=== PATIENT | male | born 1950 | race Caucasian/White ===

== ENCOUNTER → 2016-10-14 | Outpatient (CLI) | payer OTHER, MEDICARE ==
--- NOTE | 2016-10-14 12:42 | CT ---
CT of the right hip, right knee and right ankle without contrast with multiplanar reconstructions History: Right knee osteoarthritis and pain. M17.9. [facility] preoperative study. Comparison: MRI right knee. Technique: Noncontrast axial computed tomographic images of the hip, knee, and ankle with multiplanar reconstructions. CT Dose reduction techniques utilized. Findings: Severe medial tibiofemoral joint space narrowing with complete loss of joint space, subchon dral sclerosis of the medial femoral condyle and medial tibial plateau, and medial femoral condyle os teophytes. No definite joint effusion. No destructive osseous lesions. Tray Setter view and axial images demonstrate no significant degenerative changes of the right hip or right ankle. Peripheral vascular calcifications of the arteries. Impression: 1. Right knee severe medial tibiofemoral osteoarthritis. 2. Peripheral vascular disease.
== END ==
LOC: FIMAGING 10:23
PROVIDERS: ATTEND Orthopaedic Surgery
DX: Z01.818 Encounter for other preprocedural examination (principal); M17.11 Unilateral primary osteoarthritis, right knee; I73.9 Peripheral vascular disease, unspecified

== ENCOUNTER 2016-10-30 06:00 | Observation (INO) | payer OTHER, MEDICARE ==
[2016-10-30] MEDS ORDERED: TRANEXAMIC ACID 3,000 MG/50 ML BAG IRR ONE (06:27)
[2016-10-30] MEDS ORDERED: VANCOMYCIN 1 GM VIAL IV ONE (06:27)
[2016-10-30] MEDS ORDERED: SKIN ADHESIVE (DERMABOND) 1 EACH TP ONE (06:27)
[2016-10-30] MEDS ORDERED: MIDAZOLAM 2 MG/2 ML VIAL ONE (07:35)
[2016-10-30] MEDS ORDERED: PROPOFOL/EMULSION 500 MG/50 ML BOTTLE IV ONE (07:44)
[2016-10-30] MEDS ORDERED: CHLORHEXIDINE GLUC HIBICLENS 118 ML BTL TP ONE (08:00)
[2016-10-30] MEDS ORDERED: CEFAZOLIN 2 GM/DEXTR 100 ML IV ONE (08:00)
[2016-10-30] MEDS ORDERED: FAMOTIDINE 20 MG TAB PO ONE (08:00)
[2016-10-30] MEDS ORDERED: TRANEXAMIC ACID 3,000 MG in NS 50 ML IRR ONE (08:00)
[2016-10-30] MEDS ORDERED: DEXAMETHASONE 4 MG/ML VIAL IVP ONE (08:00)
[2016-10-30] MEDS ORDERED: ACETAMINOPHEN 325 MG TAB PO ONE (08:00)
[2016-10-30] MEDS ORDERED: ROPI/epiNEPH/KETOROLAC JOINT COCKTAIL IU ONE (08:00)
[2016-10-30] MEDS ORDERED: ROPIVACAINE HCL 150 MG/30 ML INJ ONE (08:25)
[2016-10-30] MEDS ORDERED: clonIDINE 1 MG/10 ML VIAL EP ONE (08:25)
[2016-10-30] MEDS ORDERED: METOCLOPRAMIDE 10 MG/2 ML VIAL IVP PRN (09:24)
[2016-10-30] MEDS ORDERED: DIPHENOXYLATE/ATROPINE LOMOTIL 1 TAB PO PRN (09:24)
[2016-10-30] MEDS ORDERED: ONDANSETRON 4 MG/2 ML VIAL IVP PRN (09:24)
[2016-10-30] MEDS ORDERED: POLYETHYLENE GLYCOL 3350 17 GM PKT PO PRN (09:24)
[2016-10-30] MEDS ORDERED: BISACODYL 10 MG SUPP PR PRN (09:24)
[2016-10-30] MEDS ORDERED: oxyCODONE IR 5 MG TAB PO PRN (09:24)
[2016-10-30] MEDS ORDERED: ONDANSETRON DISINTEGRATING 4 MG TAB PO PRN (09:24)
[2016-10-30] MEDS ORDERED: PROMETHAZINE HCL 25 MG SUPPR PR PRN (09:24)
[2016-10-30] MEDS ORDERED: MAGNESIUM HYDROXIDE 30 ML UDCUP PO PRN (09:24)
[2016-10-30] MEDS ORDERED: LACTULOSE 20 GM/30 ML UDCUP PO PRN (09:24)
[2016-10-30] MEDS ORDERED: PROMETHAZINE HCL 25 MG/ML INJ IVP PRN (09:24)
[2016-10-30] MEDS ORDERED: CYCLOBENZAPRINE 10 MG TAB PO PRN (09:24)
[2016-10-30] MEDS ORDERED: TEMAZEPAM 15 MG CAP PO PRN (09:24)
[2016-10-30] MEDS ORDERED: diphenhydrAMINE 25 MG CAP PO PRN (09:24)
[2016-10-30] MEDS ORDERED: PHARMACY PAIN CONSULT 1 EA MISC PRN (09:24)
--- NOTE | 2016-10-30 09:24 | POSTOPPROG ---
Post Op Note Date of Operation: 10/30/16 Surgeon: Kulwinder Ch Stage Manager: fidel ch Anesthesiologist: dr. sanchez Anesthesia: Spinal, Other (Specify) (adductor canal block) Pre-op Diagnosis: right knee OA Post-op Diagnosis: same Indication: right knee pain due to OA that failed conservative measures Procedure: R med partial knee arthroplasty robot assisted Findings: severe medial knee OA Inf/Abcess present in the surg proc area at time of surgery?: No EBL: 50-100
[2016-10-30] MEDS ORDERED: LR 1,000 ML IV SCH (09:30)
--- NOTE | 2016-10-30 10:28 | DX ---
Right Knee, Two Views History: Postop alignment check. Partial knee replacement Findings: A right medial compartment partial knee prosthesis is present and is in excellent postopera tive alignment. Gas is present in the soft tissues as expected. Impression: Excellent postoperative alignment partial medial compartment knee replacement.
[2016-10-30] MEDS: ACETAMINOPHEN 325 MG TAB PO SCH ×3 (12:27→23:27)
[2016-10-30] MEDS: ceFAZolin 2 GM in D5W 100 ML IV SCH ×2 (14:29→21:44)
[2016-10-30] MEDS ORDERED: ceFAZolin 2 GM/DEXTROSE 100 ML IV SCH (16:00)
--- NOTE | 2016-10-30 19:40 | GOP ---
[f rep st] OPERATIVE REPORT DATE OF OPERATION: 10/30/2016 SURGEON: Matthew Thakkar MD AUTOMOTIVE CONSULTANT: Mariangel Thakkar PA-C. ANESTHESIA: Spinal. PREOPERATIVE DIAGNOSIS: Right knee osteoarthritis. POSTOPERATIVE DIAGNOSIS: Right knee osteoarthritis. PROCEDURE PERFORMED: Right medial compartment partial knee replacement with computer navigation and robotic assist. FINDINGS/PATHOLOGY: Severe medial compartment osteoarthritis. INDICATIONS: This is a 66 year old male with progressive pain of the right knee unresponsive to conservative care. Risks and benefits of surgical intervention were explained in detail. DESCRIPTION OF PROCEDURE: The patient was brought to the operating room and placed on the table in supine position. Spinal anesthesia was induced without difficulty. A pneumatic tourniquet was applied about the right proximal thigh and the leg was prepped and draped in sterile fashion. Attention was turned first to the distal aspect of the right femur. At 3 cm proximal to the lateral rise of the femur, 2 percutaneous half pins were placed for fixation of the femoral array. In a similar fashion, 2 pins were placed anterolateral on the tibia for fixation of the tibial array. External land marking and registration of the hip center was performed without difficulty. After exsanguination by elevation, the tourniquet was inflated to 250 mmHg. Incision was made from the tibial tuberosity to the superior pole of the patella. Dissection was carried out through the subcutaneous tissue to the deep fascia using Bovie electrocautery for hemostasis. Medial parapatellar arthrotomy was carried out to the superior pole of the patella. The medial collateral ligament was elevated and the infrapatellar fat pad was resected. Internal femoral and tibial registration was carried out without difficulty and the femoral and tibial checkpoints were placed and verified for accuracy. Attention was turned to the femur. The foot print for the size 3 femoral component was cut with the 6 mm bur using the [employer] robotic system and verified for accuracy against the CT based plan. The hole was cut for the femoral post. In a similar fashion, the 6 mm bur was used to cut the foot print for the size 4 tibial component using the [employer] system and verified for accuracy against the CT based plan. Attention was turned to the posterior aspect of the knee and remnants of the medial meniscus were excised. The posterior capsule was injected with ropivacaine, epinephrine and Toradol. Trial reduction was carried out and there was excellent range of motion, alignment and stability using the size 3 femoral component and the size 4 tibial component and the 4 x 8 mm polyethylene. All trials were then removed. The joint was thoroughly irrigated and carefully dried. One package of cement and 1 gram of vancomycin were mixed in the vacuum mixer and placed on the fixation surfaces of all components. The components were implanted and all excess cement was thoroughly removed. Implant placement was verified against the CT view plan and found to be excellent. The tourniquet was deflated and all bleeders were coagulated. The wound was thoroughly irrigated and closed using interrupted sutures of 2-0 Vicryl for the joint capsule. The subcu was closed with 3-0 Vicryl and the skin with 4-0 Monocryl. Dermabond and Steri-Strips were applied, followed by a compressive dressing. The patient was then moved from the operating room to the recovery room in good condition, having tolerated the procedure well. CASE CLASSIFICATION: Clean. /[id number]/MODL MTDD
[2016-10-30] MEDS: SENNOSIDES/DOCUSATE SODIUM TAB PO SCH (20:23)
[2016-10-30] MEDS: ASPIRIN 325 MG TAB PO SCH (20:24)
[2016-10-30] MEDS: FAMOTIDINE 20 MG TAB PO SCH (20:24)
[2016-10-30] MEDS ORDERED: ATORVASTATIN CALCIUM 20 MG TAB PO SCH (21:00)
[2016-10-31] MEDS: ACETAMINOPHEN 325 MG TAB PO SCH ×2 (04:54→11:05)
[2016-10-31 05:36] LABS: HEMATOCRIT 38.1 % (40.0-51.0); HEMOGLOBIN 12.1 g/dL (13.7-17.5)
[2016-10-31 07:15] VITALS: BP 127/88; RESP 16; TEMP 97.7
[2016-10-31] MEDS: FAMOTIDINE 20 MG TAB PO SCH (08:46)
[2016-10-31] MEDS: SENNOSIDES/DOCUSATE SODIUM TAB PO SCH (08:46)
[2016-10-31] MEDS: ASPIRIN 325 MG TAB PO SCH (08:47)
[2016-10-31] MEDS ORDERED: LISINOPRIL 20 MG TAB PO SCH (09:00)
--- NOTE | 2016-10-31 10:07 | SOAPPROG ---
PEPE Progress Note Assessment/Plan: Assessment: Madan is doing well POD 1 s/p R medial partial knee arthroplasty 1) pain management: doing well on oral pain meds. well controlled. 2) anemia: level expected initially postop, asymptomatic. continue to monitor 3) VTe ppx: aspirin 325mg daily, MARCOS hose and SCDs. 4) D/c planning: patient may be d/c'd to home today. Plan: 10/31/16 10:04 10/31/16 10:06 Subjective: Madan is doing well today, denies SOB, chest pain and N/V Objective: Vital Signs Temp Pulse Resp BP Pulse Ox 36.5 C 82 16 127/88 H 95 10/31/16 07:13 10/31/16 07:13 10/31/16 07:13 10/31/16 07:13 10/31/16 07:13 Laboratory Results 10/31/16 05:04 10/30/16 10/31/16 11/01/16 05:59 05:59 05:59 Intake Total 1700 Output Total 20 Balance 1680 RLE: incision dressing is clean and dry, NVI, +pf/df ICD10 Worksheet Patient Problems: Problems Problem Status Diagnosed Primary localized osteoarthritis of right knee Acute
[2016-10-31 13:10] VITALS: PULSE 74; O2SAT 96
--- NOTE | 2016-10-31 13:13 | GDS ---
[f rep st] DISCHARGE SUMMARY ADMISSION DIAGNOSIS: Right knee osteoarthritis. DISCHARGE DIAGNOSIS: Right knee osteoarthritis. PROCEDURE: Right partial knee arthroplasty, medial compartment, robot-assisted. VTE PROPHYLAXIS: Aspirin recommended 3 weeks daily. BRIEF DESCRIPTION OF HOSPITAL STAY: Patient was admitted for an elective joint arthroplasty. The pa sarah tolerated the procedure well and has passed physical therapy. The patient was given appropriat e antibiotic prophylaxis and venous thromboembolism prophylaxis. The patient's pain was well control led on oral pain medication, patient was holding down food, and had urinated. Decision was made to d ischarge the patient. The patient was given post-operative prescriptions pre-operatively. PLAN: Please follow up as scheduled with Dr. Thakkar office at [facility] 2016 at 10:45 a.m. /[id number]/MODL
== END 2016-10-31 11:26 | disposition home or self-care (01) ==
LOC: INTOOBSV 06:00 → F3N 06:00
PROVIDERS: ADMIT Orthopaedic Surgery; ATTEND Orthopaedic Surgery
PROC: 8E0YXBZ Computer Assisted Procedure of Lower Extremity (ICD-10-PCS; principal; 2016-10-30 08:15)
PROC: 0SRC0JZ Replacement of Right Knee Joint with Synthetic Substitute, Open Approach (ICD-10-PCS; principal; 2016-10-30 08:15)
DX: M17.11 Unilateral primary osteoarthritis, right knee (principal); M25.561 Pain in right knee; K21.9 Gastro-esophageal reflux disease without esophagitis; I10 Essential (primary) hypertension; E78.5 Hyperlipidemia, unspecified
CPT/HCPCS: 20985; 27446; 73560; 97116; 97161; 97165; 97530; C1713; C1776; G8978; G8979; G8980; G8987; G8988; G8989; J0171; J0690; J0735; J1100; J1885; J2250; J2704; J2795; J3370

== ENCOUNTER → 2017-07-07 | Outpatient (CLI) | payer OTHER, MEDICARE | LOC: FIMAGING 17:09 | PROVIDERS: ATTEND Orthopaedic Surgery Hand Surgery | DX: S62.627A Displaced fracture of middle phalanx of left little finger, initial encounter for closed fracture (principal); S62.667A Nondisplaced fracture of distal phalanx of left little finger, initial encounter for closed fracture; S62.617A Displaced fracture of proximal phalanx of left little finger, initial encounter for closed fracture ==